=== PATIENT | female | born 1945 | race Caucasian/White ===

== ENCOUNTER 2025-01-02 09:48 | Day surgery (SDC) | payer MEDICARE, SELFPAY ==
[2024-12-27 09:26] VITALS: BMI 28.3
--- NOTE | 2024-12-29 13:16 | HO.ANESPROP2 ---
Documented by User: Deandra Deng NP 12/29/24 13:16 HPI - Anesthesia Eval Consult details Narrative: 79yo F for Right Cataract Extraction IOL Insertion No previous cataract on record PMFSH Past Medical History Medical History Polymyalgia rheumatica Osteopenia Lobular carcinoma in situ Kidney disease HTN (hypertension) Erum's thyroiditis Diabetes CKD (chronic kidney disease) Breast cancer Murmur Surgical History Surgical History History of uterine suspension procedure Hx of appendectomy History of tonsillectomy Hx of hysterectomy S/P mastectomy Social History Social History Patient Tobacco Use Status: Never used Tobacco Use of substances other than those prescribed or required for medical reasons: No Have you been hit, kicked, punched, or otherwise hurt by someone within the past year? If so, by whom?: No Advance Directives: No Advance Directives Information Provided: Yes Advance Directives on File: No Recently lost weight without trying: No Eating poorly because of decreased appetite: No Nutrition Risks: No Nutritional Risk Patient : No : No Meds Allergies Allergy/AdvReac Type Severity Reaction Status Date / Time COVID-19 vaccine, Allergy Muscle Pain Verified 01/02/25 10:47 recombinant (Nova erythromycin base Allergy Rash Verified 01/02/25 10:47 fish derived [fish] Allergy Hives Verified 01/02/25 10:47 Home Medications ?Medication ?Instructions ?Recorded ?Confirmed ?Last Taken ?Type amlodipine 5 mg tablet 5 mg PO DAILY 12/27/24 01/02/25 01/02/25 History cholecalciferol (vitamin D3) 10 10 mcg PO DAILY 12/27/24 12/27/24 Unknown History mcg (400 unit) tablet levothyroxine 88 mcg tablet 88 mcg QAM 12/27/24 01/02/25 01/02/25 History Exam Height,Weight and Vital Signs: Height 5 ft 2 in Weight 70.307 kg Assessment and Plan Assessment Anesthesia Assessment: Chart Reviewed Documented by User: Molly Jacob MD 01/02/25 11:28 [facility] Past Medical History Medical History Polymyalgia rheumatica Osteopenia Lobular carcinoma in situ Kidney disease HTN (hypertension) Erum's thyroiditis Diabetes CKD (chronic kidney disease) Breast cancer Murmur Surgical History Surgical History History of uterine suspension procedure Hx of appendectomy History of tonsillectomy Hx of hysterectomy S/P mastectomy History of Problems with Anesthesia: No Social History Social History Patient Tobacco Use Status: Never used Tobacco Use of substances other than those prescribed or required for medical reasons: No Have you been hit, kicked, punched, or otherwise hurt by someone within the past year? If so, by whom?: No Advance Directives: No Advance Directives Information Provided: Yes Advance Directives on File: No Recently lost weight without trying: No Eating poorly because of decreased appetite: No Nutrition Risks: No Nutritional Risk Patient : No : No Meds Allergies Allergy/AdvReac Type Severity Reaction Status Date / Time COVID-19 vaccine, Allergy Muscle Pain Verified 01/02/25 10:47 recombinant (Nova erythromycin base Allergy Rash Verified 01/02/25 10:47 fish derived [fish] Allergy Hives Verified 01/02/25 10:47 Home Medications ?Medication ?Instructions ?Recorded ?Confirmed ?Last Taken ?Type amlodipine 5 mg tablet 5 mg PO DAILY 12/27/24 01/02/25 01/02/25 History cholecalciferol (vitamin D3) 10 10 mcg PO DAILY 12/27/24 12/27/24 Unknown History mcg (400 unit) tablet levothyroxine 88 mcg tablet 88 mcg QAM 12/27/24 01/02/25 01/02/25 History Exam Airway Mallampati Class: III TM Dist: >3cm Neck ROM: Full Loose/Missing/Broken Teeth: No Heart: RRR Lungs: CTA Assessment and Plan Assessment Anesthesia Assessment: Anesthesia Plan Discussed Final Anesthetic Review History of Problems with Anesthesia: No NPO: Yes ASA Class: III Final Preanesthetic Review: Meds/Allgs Chart Reviewed, Consent Obtained/Reviewed and Anes Risks/Benef Reviewed Patient Risk: Intermediate Procedure Risk: Low Anesthetic Plan Anesthetic Plan: MAC: Disposition: Standard PACU
[2025-01-02 11:05] VITALS: BP 172/67; PULSE 70; RESP 14; TEMP 36.6; O2SAT 97
[2025-01-02] MEDS: Lactated Ringers 500 ML 50 ML IV (11:08)
[2025-01-02] MEDS: Tetracaine HCl/PF 0.5% Oph Sol 4 ML DROPS 1 DROP EYE-RIGHT (11:08)
[2025-01-02] MEDS: Cyclopentolate 1 % Ophth Sol 2 ML DRPBTL 1 DROP EYE-RIGHT ×3 (11:10→11:17)
[2025-01-02] MEDS: Tropicamide 1 % Ophth Sol 3 ML BTL 1 DROP EYE-RIGHT ×3 (11:11→11:18)
[2025-01-02] MEDS: Ketorolac Tromethamine 0.5% Op 5 ML DROPS 1 DROP EYE-RIGHT ×3 (11:12→11:20)
[2025-01-02] MEDS: Phenylephrine HCL 2.5% Oph SoL 2 ML BOTTLE 1 DROP EYE-RIGHT ×3 (11:13→11:21)
[2025-01-02 11:21] LABS: Glucose, Whole Blood 122 mg/dL (60-115)
--- NOTE | 2025-01-02 11:26 | P.PCNO_ITS ---
Ophthalmology Procedure Procedure Date of Service: 01/02/25 Ophthalmology Viscoelastic: Healon Duet Dual Pack Pro Ophthalmology Lenses: IOL Acrysof MP - [id number] (21) Procedure Notes: PREOPERATIVE DIAGNOSIS: Decreased visual acuity right eye secondary to cataract POSTOPERATIVE DIAGNOSIS: Same PROCEDURE: Right cataract extraction with intraocular lens insertion SURGEON: Bernardo Lomeli M.D. ANESTHESIA: Topical/MAC ESTIMATED BLOOD LOSS: None COMPLICATIONS: None After obtaining informed consent, the patient was brought to the operating room suite and placed in the supine position. After adequate sedation per anesthesia, topical drops of Tetracaine were given to the right eye. The eye was then prepped and draped in the usual sterile fashion. The operating room microscope was then positioned over the operative eye and a lid speculum placed. A paracentesis was created. Viscoelastic was then instilled into the anterior chamber. A three plane incision was then created temporally, utilizing a 2.85 mm keratome. Capsulotomy forceps were then utilized to create a circular tear capsulotomy. Hydrodissection and hydrodelineation were carried out until adequate mobilization of the nucleus occurred. Phacoemulsification was then utilized to remove the dense central nucl eus followed by removal of the cortical material utilizing the automated aspiration irrigation unit. Viscoelastic was instilled into the posterior capsular bag followed by placement of a posterior chamber intraocular lens without difficulty. The residual Viscoelastic was then removed utilizing the automated IA machine. The wound was checked and found to be watertight. The patient tolerated the procedure well and the lid speculum was removed. Intracameral injection of Vigamox 0.1 mL followed by a subtenon injection of Kenalog-40 0.2 mL were administered. The patient will be seen in the a.m.
--- NOTE | 2025-01-02 11:26 | MHC.SHP ---
Pre-Procedural Eval Section A - 24 Hr Update-Section A only Date of Service: 01/02/25 The patient is an INPATIENT: No Changes since office visit: No Cold of Flu in the past 2 weeks, No New Medical Problems, No Changes in Medication and No Patient answered all questions The patient has been examined within 24 hours of the surgical procedure. The History & Physical has been completed within 30 days and I have reviewed it.: Yes Section B - Complete if H&P > 30 days Chief Complaint: Age-related nuclear cataract, right eye Allergies: Allergies Allergy/AdvReac Type Severity Reaction Status Date / Time COVID-19 vaccine, Allergy Muscle Pain Verified 01/02/25 10:47 recombinant (Nova erythromycin base Allergy Rash Verified 01/02/25 10:47 fish derived [fish] Allergy Hives Verified 01/02/25 10:47 Plan Diagnosis/Plan: Unchanged I have reviewed the history and physical and performed a pertinent physical examination on my patient. No changes have occurred unless specified. Time Spent With Patient Time: Total time managing care of this patient today ____ minutes.
[2025-01-02 11:54] VITALS: BP 164/60; PULSE 57; RESP 18; TEMP 36.2; O2SAT 99
== END 2025-01-02 12:07 | disposition home or self-care (01) ==
PROVIDERS: PCP Physician Assistant Surgical; Visit Provider Ophthalmology
PROC: (CPT 66985; principal; 2025-01-02 12:30)
DX: H25.11 Age-related nuclear cataract, right eye (principal); H52.4 Presbyopia; Z83.511 Family history of glaucoma; H31.001 Unspecified chorioretinal scars, right eye; H18.413 Arcus senilis, bilateral; E11.22 Type 2 diabetes mellitus with diabetic chronic kidney disease; I12.9 Hypertensive chronic kidney disease with stage 1 through stage 4 chronic kidney disease, or unspecified chronic kidney disease; N18.9 Chronic kidney disease, unspecified; E06.3 Autoimmune thyroiditis; M79.10 Myalgia, unspecified site; M35.3 Polymyalgia rheumatica; D18.01 Hemangioma of skin and subcutaneous tissue; Z85.3 Personal history of malignant neoplasm of breast; Z79.899 Other long term (current) drug therapy; Z88.1 Allergy status to other antibiotic agents
CPT/HCPCS: 66984; 82947; J3010; J3301; V2630